=== PATIENT | female | born 2000 | race Caucasian/White ===

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

== ENCOUNTER 2020-02-13 00:02 | Inpatient (IN) ==
[2020-02-13] MEDS ORDERED: OXYTOCIN/0.9 % SODIUM CHLORIDE 30 UNITS/500 ML BAG IV ONE ×2 (00:25→20:24)
[2020-02-13] MEDS ORDERED: RINGER'S SOLUTION,LACTATED 1,000 ML IV ONE (00:25)
[2020-02-13] MEDS ORDERED: ONDANSETRON 4 MG TAB.RAPDIS PO PRN (00:25)
[2020-02-13] MEDS ORDERED: MISOPROSTOL 100 MCG TABLET VG ONE (01:01)
[2020-02-13 01:57] LABS: Cocaine Ur Negative (NEGATIVE); Urine Barbiturate Negative (NEGATIVE); Urine Benzodiazepines Negative (NEGATIVE); Urine Opiates Negative (NEGATIVE); Urine PCP Negative (NEGATIVE); Urine THC Negative (NEGATIVE)
[2020-02-13] MEDS: DEXTROSE 5%-LACTATED RINGERS 1,000 ML IV PRN ×2 (05:26→13:39)
--- NOTE | 2020-02-13 11:53 | HP ---
Chief Complaint - Chief Complaint Date of Service: 02/13/20 Time of Service: 08:45 Chief Complaint: medical induction of labor History of Present Illness: 19 yo at 39w0d admitted for induction of labor due to history of IUGR baby with trending IUGR in this . This complicated by anemia, bipolar d/o, h/o GDM, h/o IUGR, and smoker. Rh negative Rubella immune GBS negative Medical History (Last Reviewed 02/13/20 @ 11:47 by Mat Ashton DO) Asthma (Chronic) Bacterial vaginitis (Acute) History of gestational diabetes (Chronic) Marijuana use (Acute) History of prior with IUGR (Chronic) Smoked during Bipolar disorder (Chronic) Abnormal uterine bleeding Onset Date: 03/23/19 Allergic rhinitis Onset Date: 09/03/10 Asthma Onset Date: Unknown moderate persistent-well controlled. usually exacerbates in spring. Bipolar affective disorder Onset Date: Unknown Body piercing Onset Date: Unknown GERD (gastroesophageal reflux disease) Onset Date: 06/03/14 Long QT interval Onset Date: ~2006 Work up was done "a long time ago" Tattoos Onset Date: Unknown Tobacco abuse Onset Date: 08/13/07 Wears glasses Onset Date: Unknown ADHD (attention deficit hyperactivity disorder) Onset Date: 02/15/08 Chest pain Onset Date: 02/15/08 Gestational diabetes Onset Date: ~2016 IUGR (intrauterine growth restriction) affecting care of mother Onset Date: 01/20/17 SAB (spontaneous ) Onset Date: ~02/2018 x2-10.2017 Sinusitis Onset Date: Unknown pt hospitalized around age 1 for fever - source found to be H. flu sinusitis with bacteremia. Treated appropriately Weight gain, abnormal Onset Date: 04/03/10 Weight loss, abnormal Onset Date: 04/03/09 Surgical History: Surgical History (Last Reviewed 02/13/20 @ 11:47 by Mat Ashton DO) H/O adenoidectomy Onset Date: Unknown History of dilation and curettage Onset Date: 02/15/18 sab [place] teeth extracted Onset Date: ~09/2017 Family History: Family History (Last Reviewed 02/13/20 @ 11:47 by Mat Ashton DO) Grandmother Breast cancer A-fib Heart disease Diabetes Hypothyroidism Grandmother Cervical cancer Father Unknown family medical history Mother Colitis Diverticula of colon SVT (supraventricular tachycardia) Social History: (Last Reviewed 02/13/20 @ 11:48 by Mat Ashton DO) Social History: adopted: No assisted: No Marital status: Single household members: children, significant other number of children: 1 current occupational status: unemployed current occupational exposures/hazards: No Highest education level completed: high school graduate Sexually Active: Yes Service: No Tobacco: Smoking Status: Former smoker tobacco type: cigarettes Smoking cigarettes per day: 20.0 Smoking packs per day: 1 Alcohol: alcohol intake: never Substance Use: substance use type: does not use Dietary Habits: caffeine: Yes caffeine comment: 2/day Type: carbonated beverages Exercise: frequency: does not exercise [place]/[employer]: agree to transfusion: Yes Review Of Systems (GEN) - Review of Systems Generalized/Overall Review: Present: No Symptoms Reported EENTM: Present: No Symptoms Reported Respiratory: Present: No Symptoms Reported Cardiac: Present: No Symptoms Reported Abdominal: Present: No Symptoms Reported Genitourinary: Present: No Symptoms Reported Musculoskeletal: Present: No Symptoms Reported Neurological: Present: No Symptoms Reported Skin: Present: No Symptoms Reported Endocrine: Present: No Symptoms Reported Immunizations: IMMUNIZATION HX Immunizations Up to Date Yes History of Influenza Vaccine No Hx Pneumococcal Vaccination No Allergies/Adverse Reactions: Allergies Allergy/AdvReac Type Severity Reaction Status Date / Time lactose AdvReac Severe gastric Verified 02/10/20 19:15 upset Home Medications: HOME MEDICATIONS lurasidone 20 mg tablet 25 mg PO DAILY tab 01/23/20 [Last Taken 02/12/20] Acetaminophen [Tylenol] 325 mg PO QID 02/13/20 [Last Taken Unknown] Ascorbate Calcium [Vitamin C] 500 mg PO DAILY 02/13/20 [Last Taken 02/12/20] Ferrous Sulfate [Iron] 325 mg PO DAILY 02/13/20 [Last Taken 02/12/20] Exam - Exam Vital Signs: Vital Signs - Last Taken Temp 36.3 C 02/13/20 00:54 Pulse 110 H 02/13/20 00:54 Resp 16 02/13/20 00:54 BP 124/62 02/13/20 00:54 Pulse Ox 99 02/13/20 00:54 Constitutional: Present: Alert, Oriented x3, Cooperative ENT Exam: Present: hearing grossly normal Neck: Present: non-tender, supple. Absent: thyromegaly Breasts: Present: Exam deferred Respiratory: Present: lungs clear, no respiratory distress Cardiovascular/Chest: Present: normal peripheral pulses, regular rate, rhythm - Tachycardic on admission (110) Abdomen: Present: soft, nontender, no rebound tenderness, other - Gravid /Rectal: Present: Other - Cervix 1-2/50/-3 Extremity: Present: no pedal edema, no calf tenderness Skin Exam: Present: normal color, warm/dry, no cyanosis Neurologic: Present: alert, normal mood/affect, oriented x 3 Appearance: Present: appropriate appearance, appropriate insight Eye contact: Present: cooperative, good eye contact Thoughts: Present: normal thought pattern, normal mood /affect Diagnostic Studies: Laboratory Results Urine Opiates Screen Negative (NEGATIVE) 02/13/20 01:40 Barbiturate Screen Negative (NEGATIVE) 02/13/20 01:40 Ur Phencyclidine Scrn Negative (NEGATIVE) 02/13/20 01:40 Urine Amphetamine Negative (NEGATIVE) 02/13/20 01:40 U Benzodiazepines Scrn Negative (NEGATIVE) 02/13/20 01:40 Urine Cocaine Screen Negative (NEGATIVE) 02/13/20 01:40 Urine Marijuana (THC) Negative (NEGATIVE) 02/13/20 01:40 Assessment/Plan - Assessment/Plan (1) History of prior with IUGR Assessment: Admit for Cytotec induction of labor. Epidural and pitocin PRN. Problem: Chronic (2) Asthma Problem: Inactive Qualifiers: Asthma severity: mild Asthma persistence: intermittent Asthma complication type: uncomplicated Qualified Code(s): J45.20 - Mild intermittent asthma, uncomplicated (3) History of gestational diabetes Problem: Chronic (4) Bipolar disorder Problem: Chronic Qualifiers: Active/Remission status: in remission of unspecified degree Qualified Code(s): F31.70 - Bipolar disorder, currently in remission, most recent episode unspecified (5) Anemia Problem: Acute Qualifiers: Anemia type: iron deficiency Iron deficiency anemia type: inadequate dietary iron intake Qualified Code(s): D50.8 - Other iron deficiency anemias
--- NOTE | 2020-02-13 11:55 | PN ---
Progess Note - Interim Date: 02/13/20 Time: 09:00 Narrative: 02/13/20 11:53 Patient rating her contractions as mild Vital signs stable. Pitocin at 6 mu/min. FHT: 130 baseline, reassuring contractions q 2-3 min Cervix: 1-2/50/-3, AROM-clear Impression: Intrauterine at 39 weeks induction of labor for history of IUGR with trending IUGR this . Plan: Continue present plan
[2020-02-13] MEDS ORDERED: ONDANSETRON HCL/PF 2 MG/ML VIAL IV PRN (11:56)
[2020-02-13] MEDS ORDERED: NALOXONE HCL 1 MG/1 ML SYRG IV PRN (11:56)
[2020-02-13] MEDS ORDERED: BUPIVACAINE HCL/0.9 % NACL/PF 250 ML EP PRN (11:56)
[2020-02-13] MEDS ORDERED: fentaNYL CITRATE/PF 50 MCG/ML AMPUL IT SCH (12:00)
--- NOTE | 2020-02-13 12:12 | ANES ---
Anesthesia Pre Procedure Eval Vitals/Labs: Last Vital Signs Temp 36.3 C 02/13/20 00:54 Pulse 110 H 02/13/20 00:54 Resp 16 02/13/20 00:54 BP 124/62 02/13/20 00:54 Pulse Ox 99 02/13/20 00:54 HOME MEDICATIONS lurasidone 20 mg tablet 25 mg PO DAILY tab 01/23/20 [Last Taken 02/12/20] Acetaminophen [Tylenol] 325 mg PO QID 02/13/20 [Last Taken Unknown] Ascorbate Calcium [Vitamin C] 500 mg PO DAILY 02/13/20 [Last Taken 02/12/20] Ferrous Sulfate [Iron] 325 mg PO DAILY 02/13/20 [Last Taken 02/12/20] Allergies/Adverse Reactions: Allergies Allergy/AdvReac Type Severity Reaction Status Date / Time lactose AdvReac Severe gastric Verified 02/10/20 19:15 upset - Planned Procedure Planned Procedure: labor Medication List Reviewed:: Yes Allergies Verified: Yes Medical History (Last Reviewed 02/13/20 @ 12:11 by Mark Emmanuel CRNA) Asthma (Inactive) Bacterial vaginitis (Acute) History of gestational diabetes (Chronic) Marijuana use (Acute) History of prior with IUGR (Chronic) Smoked during Bipolar disorder (Chronic) Abnormal uterine bleeding Onset Date: 03/23/19 Allergic rhinitis Onset Date: 09/03/10 Asthma Onset Date: Unknown moderate persistent-well controlled. usually exacerbates in spring. Bipolar affective disorder Onset Date: Unknown Body piercing Onset Date: Unknown GERD (gastroesophageal reflux disease) Onset Date: 06/03/14 Long QT interval Onset Date: ~2006 Work up was done "a long time ago" Tattoos Onset Date: Unknown Tobacco abuse Onset Date: 08/13/07 Wears glasses Onset Date: Unknown ADHD (attention deficit hyperactivity disorder) Onset Date: 02/15/08 Chest pain Onset Date: 02/15/08 Gestational diabetes Onset Date: ~2016 IUGR (intrauterine growth restriction) affecting care of mother Onset Date: 01/20/17 SAB (spontaneous ) Onset Date: ~02/2018-10.2017 Sinusitis Onset Date: Unknown pt hospitalized around age 1 for fever - source found to be H. flu sinusitis with bacteremia. Treated appropriately Weight gain, abnormal Onset Date: 04/03/10 Weight loss, abnormal Onset Date: 04/03/09 Surgical History (Last Reviewed 02/13/20 @ 12:11 by Mark Emmanuel CRNA) H/O adenoidectomy Onset Date: Unknown History of dilation and curettage Onset Date: 02/15/18 sab [place] teeth extracted Onset Date: ~09/2017 Family History (Last Reviewed 02/13/20 @ 12:11 by Mark Emmanuel CRNA) Grandmother Breast cancer A-fib Heart disease Diabetes Hypothyroidism Grandmother Cervical cancer Father Unknown family medical history Mother Colitis Diverticula of colon SVT (supraventricular tachycardia) - Family Anesthesia History Family History:: no untoward family reactions to anesthesia, no familial bleeding tendencies, no family history of clotting disorders, no family history of premature - Airway/Neck/Teeth Within Normal Limits:: Yes Teeth Condition: intact Neck Exam: full range of motion Mallampatti Score: 2 Thyromental (T-M) distance: > 6 cm Mandibulo Hyoid distance: > 3 cm - Respiratory Respiratory History: asthma Respiratory Physical: lungs clear Sleep Apnea currently treated: No Sleep Apnea by current assessment: No - Cardiovascular Tolerate Activity: Fair Heart Sounds: S1 & S2, Regular - Anesthesia Assessment and Plan ASA Class: PS, II, E Anesthesia Type Plan: Epidural - CSE for labor analgesia
--- NOTE | 2020-02-13 12:36 | ANES ---
Post Anesthesia Discharge - Transfer of Care Transfer of Care handoff given to nurse: Yes - Discharge from PACU Discharge from PACU when meets criteria: Yes - Comfortable post CSE.
--- NOTE | 2020-02-13 12:39 | ANES ---
Anesthesia Procedure Note Procedure Note: ANESTHESIA PROCEDURE NOTE Date of Procedure: 02/13/2020 Time of procedure: 12:15 PM. Performed by: VIJAYA Luna CRNA, MSN Retort Loader: April York RN. Preprocedure diagnosis: Active labor, labor pain. Post procedure diagnosis: Same. Procedure:Epidural for labor analgesia L3-4. Indications: Labor pain. Findings: See below. Details of the procedure: The patient was placed on the side of the bed in sitting positionand prepped with DuraPrep then draped in a sterile fashion. She was quite animated and quite sensitive to tactile sensation. Recurrent contractions were apparently causing severe painful stimuli, but she also reacted my palpation of her iliac crest as well. Lidocaine 1% was infiltrated to the skin and subcutaneous tissues at the level of the L3-4 interspace. An 18-gauge Touhy needle was used to approach the epidural space with loss of resistance technique. Once loss of resistance was achieved a 27-gauge spinal needle was passed through the epidural needle and CSF was contacted. After CSF returned, 20 mcg of fentanyl was injected in the spinal needle was removed the epidural catheter was then threaded approximately 4 cm in the epidural needle was removed. The catheter was taped in place and after careful aspiration 3 mL of 1.5% lidocaine with 1-200,000 epinephrine was injected without change in maternal heart rate or sensorium. . EBL: Minimal. Fluids: N/A. Specimen: N/A. Post procedure condition: The patient tolerated the procedure well with good relief. No complications were noted. Thank you for this consultation. Mark Emmanuel CRNA, ARNP, MSN
--- NOTE | 2020-02-13 12:52 | ANES ---
Post Anesthesia Assessment - Vital Signs Vitals: Last Vital Signs Temp 36.3 C 02/13/20 00:54 Pulse 110 H 02/13/20 00:54 Resp 16 02/13/20 00:54 BP 124/62 02/13/20 00:54 Pulse Ox 99 02/13/20 00:54 Airway Patency: Normal - Mental Status Level Of Consciousness: Awake, Alert, Appropriate - Pain Level Pain Score: 0 - N/V Assessment Nausea/Vomiting Presence: None Dehydration:: No
--- NOTE | 2020-02-13 16:52 | PN ---
Progess Note - Interim Date: 02/13/20 Time: 16:50 Narrative: 02/13/20 16:50 Patient comfortable with epidural Vital signs stable. Pitocin at 2 mu/min. FHT: 130 baseline, reassuring. Patient had a run of late decelerations which resolved after shutting the Pitocin off for 30 minutes. Contractions q 2-3 min Cervix: 8-9/90/-2 Impression: Intrauterine at 39 weeks progressing well. Plan: Continue present plan
[2020-02-13] MEDS ORDERED: BENZOCAINE/MENTHOL 81 SPRAY CAN TP PRN (20:24)
[2020-02-13] MEDS ORDERED: BISACODYL 10 MG SUPP.RECT RC PRN (20:24)
[2020-02-13] MEDS ORDERED: GLYCERIN/WITCH HAZEL LEAF 40 APPL BOX TP PRN (20:24)
[2020-02-13] MEDS ORDERED: SENNOSIDES 8.6 MG TABLET PO PRN (20:24)
[2020-02-13] MEDS ORDERED: HYDROCORTISONE 30 APPL TUBE TP PRN (20:24)
[2020-02-13] MEDS ORDERED: oxyCODONE HCL/ACETAMINOPHEN 1 TAB TABLET PO PRN (20:24)
[2020-02-13] MEDS ORDERED: LURASIDONE HCL PO SCH (20:27)
--- NOTE | 2020-02-13 20:34 | OR ---
Operative Report - Dictated Report Narrative: Spontaneous vaginal delivery of vigorously crying viable female at 2007 on 02/13/2020 with Apgars 9 and 10, weighing 2858 g in LUZ ELENA position. Cord clamping delayed approximately 1 minute Placenta delivered complete, intact, with three vessel cord Estimated blood loss: Less than 50 ml Anesthesia: Epidural Lacerations: None History for MU History for MU Definition: * The number of deliveries resulting in a live the patient experienced prior to current hospitalization * The previous delivery of live twins or any live multiple gestation is considered one live event. *If primagravida or nulliparous is documented select zero for the number of previous live births. Live Events: Live Events: 1
[2020-02-13] MEDS: IBUPROFEN 800 MG TABLET PO PRN (22:28)
[2020-02-13] MEDS: DOCUSATE SODIUM 100 MG CAPSULE PO SCH (23:23)
[2020-02-14] MEDS: IBUPROFEN 800 MG TABLET PO PRN ×2 (04:33→19:59)
[2020-02-14] MEDS ORDERED: LURASIDONE HCL PO SCH (09:00)
[2020-02-14] MEDS: FERROUS SULFATE 325 MG TABLET PO SCH (09:01)
[2020-02-14] MEDS: DOCUSATE SODIUM 100 MG CAPSULE PO SCH ×2 (09:01→21:20)
[2020-02-14] MEDS: ASCORBIC ACID 500 MG TABLET PO SCH (09:01)
--- NOTE | 2020-02-14 13:02 | PN ---
Subjective - Date and Time Seen Date: 02/14/20 Time: 08:40 Objective - Vitals Vitals: Last Vital Signs Temp 36.7 C 02/14/20 07:16 Pulse 69 02/14/20 07:16 Resp 18 02/14/20 07:16 BP 109/58 02/14/20 07:16 Pulse Ox 99 02/14/20 07:16 Patient denies complaints. Lochia wnl abdomen - soft, nontender Uterus -firm, at umbilicus - 1 No calf tenderness Impression: day #1 - s/p spontaneous vaginal delivery. Plan: Continue routine care Cauti Physician Documentation - Urinary Catheter Management Urethral ([place]) Date of Insertion: 02/13/20 Time of Insertion: 13:00 Date of Removal: 02/13/20 Time of Removal: 20:00 Assessment/Plan - Problems/Diagnosis (1) History of prior with IUGR Problem: Chronic (2) Asthma Problem: Inactive Qualifiers: Asthma severity: mild Asthma persistence: intermittent Asthma complica tion type: uncomplicated Qualified Code(s): J45.20 - Mild intermittent asthma, uncomplicated (3) History of gestational diabetes Problem: Chronic (4) Bipolar disorder Problem: Chronic Qualifiers: Active/Remission status: in remission of unspecified degree Qualified Code(s): F31.70 - Bipolar disorder, currently in remission, most recent episode unspecified (5) Anemia Problem: Acute Qualifiers: Anemia type: iron deficiency Iron deficiency anemia type: inadequate dietary iron intake Qualified Code(s): D50.8 - Other iron deficiency anemias
[2020-02-14] MEDS: LURASIDONE PO SCH ×2 (22:25→22:26)
[2020-02-15] MEDS: IBUPROFEN 800 MG TABLET PO PRN (06:54)
[2020-02-15 07:16] VITALS: BP 129/82
[2020-02-15] MEDS: FERROUS SULFATE 325 MG TABLET PO SCH (08:35)
[2020-02-15] MEDS: ASCORBIC ACID 500 MG TABLET PO SCH (08:35)
[2020-02-15] MEDS: DOCUSATE SODIUM 100 MG CAPSULE PO SCH (08:35)
--- NOTE | 2020-02-15 11:23 | PN ---
Subjective - Date and Time Seen Date: 02/15/20 Time: 11:23 Objective - Vitals Vitals: Last Vital Signs Temp 36.4 C 02/15/20 07:13 Pulse 74 02/15/20 07:13 Resp 16 02/15/20 07:13 BP 129/82 02/15/20 07:13 Pulse Ox 100 02/15/20 07:13 Patient denies complaints. Bottlefeeding Lochia wnl abdomen - soft, nontender Uterus -firm, at umbilicus - 2 No calf tenderness Impression: day #2 - s/p spontaneous vaginal delivery. Plan: Routine discharge instructions Cauti Physician Documentation - Urinary Catheter Management Urethral ([place]) Date of Insertion: 02/13/20 Time of Insertion: 13:00 Date of Removal: 02/13/20 Time of Removal: 20:00 Assessment/Plan - Problems/Diagnosis (1) History of prior with IUGR Problem: Chronic (2) Asthma Problem: Inactive Qualifiers: Asthma severity: mild Asthma persistence: intermittent Asthma complication type: uncomplicated Qualified Code(s): J45.20 - Mild intermittent asthma, uncomplicated (3) History of gestational diabetes Problem: Chronic (4) Bipolar disorder Problem: Chronic Qualifiers: Active/Remission status: in remission of unspecified degree Qualified Code(s): F31.70 - Bipolar disorder, currently in remission, most recent episode unspecified (5) Anemia Problem: Acute Qualifiers: Anemia type: iron deficiency Iron deficiency anemia type: inadequate dietary iron intake Qualified Code(s): D50.8 - Other iron deficiency anemias
--- NOTE | 2020-02-15 11:56 | DS ---
OB Discharge Summary (1) History of prior with IUGR Status: Chronic (2) Asthma Status: Inactive Qualifiers: Asthma severity: mild Asthma persistence: intermittent Asthma complication type: uncomplicated Qualified Code(s): J45.20 - Mild intermittent asthma, uncomplicated (3) History of gestational diabetes Status: Chronic (4) Bipolar disorder Status: Chronic Qualifiers: Active/Remission status: in remission of unspecified degree Qualified Code(s): F31.70 - Bipolar disorder, currently in remission, most recent episode unspecified (5) Anemia Status: Acute Qualifiers: Anemia type: iron deficiency Iron deficiency anemia type: inadequate dietary iron intake Qualified Code(s): D50.8 - Other iron deficiency anemias Delivery Date: 02/13/20 Delivery Time: 20:08 :: 4 Para:: 2 Gestational weeks:: 39 Gestational days:: 0 Intrapartum Procedures: Spontaneous Vaginal Delivery, Delivered /OP Complications: No Complications - Discharge Information Date of Discharge: 02/15/20 Hospital Course: 19-year-old 4 para 1 admitted at 39 weeks for induction of labor which went uneventfully. Her course was uncomplicated and she was discharged on day 2. Disposition: Home self-care Condition: Good Referrals: Maddie Elmore DO [Primary Care Provider] - Activity on Discharge:: Activity as tolerated Discharge Diet: General/regular food Additional Patient Instructions (free text): Mary Jo madden six week post checkup is on , 03/15/2020 at 2:15 PM with . Debi's follow up appointment is on 02/17/2020 at 3:20 PM with . Rest frequently and drink plenty of fluids. Please call [facility] at [phone], [facility] at [phone], or [facility] at [phone] with any questions or concerns. Thank you for choosing [facility] to deliver your baby. Debi'juliette blood type:A- Discharge weight: 6 lbs 1.7 ounces, 2771 grams Discharge bilirubin: 0 at 32 hours Prescriptions (Any new or edited meds): Ibuprofen [Motrin] 200 - 800 mg PO Q6H PRN #100 tab PRN Reason: Pain Complete Home Medications List: Complete Home Medication List: lurasidone 20 mg tablet 25 mg PO DAILY tab 01/23/20 Acetaminophen [Tylenol] 325 mg PO QID 02/13/20 Ascorbate Calcium [Vitamin C] 500 mg PO DAILY 02/13/20 Ferrous Sulfate [Iron] 325 mg PO DAILY 02/13/20 Ibuprofen [Motrin] 200 - 800 mg PO Q6H PRN #100 tab 02/15/20 - Plan Discharge to:: Home Follow up in office in:: 3-4 weeks - Information Weight (Grams): 2,858 Infant Sex: Female Score 1 min: 9 Score 5 min: 10 Circumcision: Not Applicable Complications: None
== END 2020-02-15 11:15 | disposition home or self-care (01) | DRG 807 ==
LOC: OB 00:02
PROVIDERS: ADMIT Obstetrics & Gynecology; ATTEND Obstetrics & Gynecology